=== PATIENT | female | born 1930 | race Caucasian/White ===

== ENCOUNTER 2016-09-14 11:20 | Outpatient (CLI) | payer MEDICARE, OTHER | END 2016-09-14 11:21 | disposition home or self-care (01) | DX: E87.6 Hypokalemia (principal) ==

== ENCOUNTER 2016-12-05 08:00 | Outpatient (CLI) | payer MEDICARE, OTHER | END 2016-12-05 08:01 | disposition home or self-care (01) | DX: E87.6 Hypokalemia (principal) ==

== ENCOUNTER 2016-12-28 15:09 | Outpatient (CLI) | payer MEDICARE, OTHER | END 2016-12-28 15:10 | disposition home or self-care (01) | DX: E87.6 Hypokalemia (principal); I10 Essential (primary) hypertension; E03.9 Hypothyroidism, unspecified; N28.9 Disorder of kidney and ureter, unspecified ==

== ENCOUNTER 2017-06-07 08:49 | Outpatient (CLI) | payer MEDICARE, OTHER ==
[2017-06-07 12:29] LABS: ALBUMIN/GLOBULIN RATIO 1.2 (1.0-2.2); BILIRUBIN,TOTAL 0.6 mg/dL (0.2-1.0); BUN - BLOOD UREA NITROGEN 27 mg/dL (6-20); CALCIUM 8.8 mg/dL (8.5-10.3); CARBON DIOXIDE - CO2 25 mmol/L (21-32); CHLORIDE 103 mmol/L (101-111); CHOL/HDL RATIO 3.2 (<4.4); CHOLESTEROL 205 mg/dL; CREATININE 1.1 mg/dL (0.4-1.0); GFR - MDRD 47 (>89); GLUCOSE 95 mg/dL (70-100); HDL CHOLESTEROL 64 mg/dL; LDL/HDL RATIO 1.8 (<4.4); POTASSIUM 3.8 mmol/L (3.5-5.0); SODIUM 143 mmol/L (135-145); TOTAL PROTEIN 7.3 g/dL (6.7-8.2); TRIGLYCERIDES 127 mg/dL; VLDL CHOLESTEROL 25 mg/dL
== END 2017-06-07 08:50 | disposition home or self-care (01) ==
LOC: LAB.F 08:49
PROVIDERS: ATTEND Internal Medicine
DX: E78.00 Pure hypercholesterolemia, unspecified (principal); N18.3 Chronic kidney disease, stage 3 (moderate)
CPT/HCPCS: 36415; 80053; 80061

== ENCOUNTER 2017-11-20 11:36 | Outpatient (CLI) | payer MEDICARE, OTHER ==
[2017-11-20 18:10] LABS: BUN - BLOOD UREA NITROGEN 26 mg/dL (6-20); CALCIUM 8.8 mg/dL (8.5-10.3); CARBON DIOXIDE - CO2 27 mmol/L (21-32); CHLORIDE 104 mmol/L (101-111); CHOL/HDL RATIO 3.7 (<4.4); CHOLESTEROL 198 mg/dL; CREATININE 1.1 mg/dL (0.4-1.0); GFR - MDRD 47 (>89); GLUCOSE 91 mg/dL (70-100); HDL CHOLESTEROL 54 mg/dL; LDL CHOLESTEROL,CALCULATED 107 mg/dL; SODIUM 141 mmol/L (135-145); VLDL CHOLESTEROL 37 mg/dL
== END 2017-11-20 11:37 | disposition home or self-care (01) ==
LOC: LAB.F 11:36
PROVIDERS: ATTEND Internal Medicine
DX: I10 Essential (primary) hypertension (principal); E78.00 Pure hypercholesterolemia, unspecified; E03.9 Hypothyroidism, unspecified
CPT/HCPCS: 36415; 80048; 80061; 83721; 84443

== ENCOUNTER 2018-05-29 10:26 | Outpatient (CLI) | payer MEDICARE, OTHER ==
--- NOTE | 2018-05-29 15:52 | XRAY Report ---
Reason: BRONCHITIS Procedure Date: 05/29/2018 Accession Number: [id number] / [id number] Procedure: XR - Chest 2 View X-Ray CPT Code: 59891 FULL RESULT: EXAM: CHEST RADIOGRAPHY EXAM DATE: 05/29/2018 10:36 AM. CLINICAL HISTORY: BRONCHITIS. COMPARISON: None FINDINGS: Lungs/Pleura: The lungs appear clear. No pneumothorax or pleural effusion. Mediastinum: There is cardiomegaly. Other: Cholecystectomy is noted. IMPRESSION: No evidence of acute cardiopulmonary disease.
== END 2018-05-29 10:27 | disposition home or self-care (01) ==
LOC: DI 10:26
PROVIDERS: ATTEND Registered Nurse
DX: J20.9 Acute bronchitis, unspecified (principal)
CPT/HCPCS: 71046

== ENCOUNTER 2019-02-27 07:31 | Outpatient (CLI) | payer MEDICARE, OTHER ==
[2019-02-27 10:33] LABS: HGB - HEMOGLOBIN 13.1 g/dL (12.0-16.0); MEAN CORPUSCULAR HEMOGLOBIN 31.7 pg (27.0-31.0); MEAN CORPUSCULAR HGB CONC 33.2 g/dL (32.0-36.0); MEAN CORPUSCULAR VOLUME 95.4 fL (81.0-99.0); MEAN PLATELET VOLUME 10.7 fL (7.9-10.8); RED BLOOD COUNT 4.13 10^6/uL (4.20-5.40); RED CELL DISTRIBUTION WIDTH 14.3 % (12.0-15.0); WHITE BLOOD COUNT 10.7 x10^3/uL (4.8-10.8)
[2019-02-27 10:56] LABS: ALBUMIN 3.9 g/dL (3.2-5.5); ALBUMIN/GLOBULIN RATIO 1.1 (1.0-2.2); ALKALINE PHOSPHATASE 61 IU/L (42-121); ALT ALANINE AMINOTRANSFERASE 15 IU/L (10-60); AST ASPARTATE AMINOTRANSFERASE 23 IU/L (10-42); BILIRUBIN,TOTAL 0.5 mg/dL (0.2-1.0); BUN - BLOOD UREA NITROGEN 27 mg/dL (6-20); CALCIUM 8.6 mg/dL (8.5-10.3); CARBON DIOXIDE - CO2 26 mmol/L (21-32); CHLORIDE 105 mmol/L (101-111); CHOL/HDL RATIO 3.5 (<4.4); CHOLESTEROL 205 mg/dL; GFR - MDRD 52 (>89); GLUCOSE 97 mg/dL (70-100); HDL CHOLESTEROL 59 mg/dL; LDL CHOLESTEROL,CALCULATED 120 mg/dL; SODIUM 144 mmol/L (135-145); TOTAL PROTEIN 7.3 g/dL (6.7-8.2); VLDL CHOLESTEROL 26 mg/dL
== END 2019-02-27 07:32 | disposition home or self-care (01) ==
LOC: LAB.S 07:31
PROVIDERS: ATTEND Internal Medicine
DX: E78.00 Pure hypercholesterolemia, unspecified (principal); E03.9 Hypothyroidism, unspecified
CPT/HCPCS: 36415; 80053; 80061; 83721; 84443; 85027

== ENCOUNTER 2019-05-26 03:24 | Outpatient (CLI) | payer MEDICARE, OTHER | END 2019-05-26 03:25 | disposition critical access hospital (66) | LOC: EMS 03:24 | PROVIDERS: ATTEND Surgery | DX: L50.9 Urticaria, unspecified (principal); M79.89 Other specified soft tissue disorders | CPT/HCPCS: A0425; A0429 ==

== ENCOUNTER 2019-05-26 03:54 | Emergency (ER) | payer MEDICARE, OTHER ==
--- NOTE | 2019-05-26 03:59 | ED Physician Documentation ---
PD HPI SKIN - Stated complaint Stated Complaint: SKIN RASH - History obtained from History obtained from: Patient - History of Present Illness Timing - onset: How many days ago (6) Timing - duration: Days ( 4) Timing - details: Abrupt onset, Still present Location: Bodywide Quality / character: Itchy, Discolored (red). No: Vesicular Improved by: Oral steroids (Seeing 2 days ago and started on a Medrol Dosepak but has not noticed much improvement. Was not given any antihistamines.) Associated symptoms: Myalgias. No: Fever, Headache, Facial swelling, Dyspnea, N/V/D Contributing factors: Exposed to medication (Had a flu shot 2 days prior to the onset of symptoms) Similar symptoms before: Has not had sx before Recently seen: Clinic (She had a flu shot 5 days ago on a Sunday at [facility]. She felt some slight myalgias the following day and then the second day after noted onset of a general itchy bumpy rash. She tried topical Benadryl without any improvement. Continued another couple of days and she went to her primary care or walk-in clinic and given Prednisone 20 mg PO. She has been on that for 2 doses so far without any improvement) Review of Systems Constitutional: reports: Myalgias, Fatigue. denies: Fever, Chills Nose: denies: Rhinorrhea / runny nose, Congestion Respiratory: denies: Dyspnea, Cough, Wheezing GI: denies: Nausea, Vomiting, Diarrhea Skin: reports: Rash Neurologic: reports: Generalized weakness. denies: Focal weakness, Numbness, Near syncope, Altered mental status, Headache PD PAST MEDICAL HISTORY - Past Medical History Cardiovascular: None Respiratory: None Neuro: None Endocrine/Autoimmune: None - Present Medications Home Medications: Ambulatory Orders Medication Instructions Recorded Confirmed Cetirizine [ZyrTEC] 10 mg PO DAILY #15 tablet 05/26/19 Hydrocodone/Acetaminophen [[place] 1 each PO Q6H PRN #15 tablet 05/26/19 5-325 Tablet] dexAMETHasone [Decadron] 4 mg PO DAILY #5 tablet 05/26/19 diphenhydrAMINE [Benadryl] 25 mg PO Q4-6H PRN #30 capsule 05/26/19 - Allergies Allergies/Adverse Reactions: Allergies Allergy/AdvReac Type Severity Reaction Status Date / Time ampicillin Allergy Hives Verified 05/26/19 06:28 Penicillins Allergy Hives Verified 05/26/19 06:28 PD ED PE NORMAL - Vitals Vital signs reviewed: Yes - General General: Alert and oriented X 3, Well developed/nourished, Other (She is having itchy diffuse rash without vesicles. This was after flu shot at [facility]. She denies other head cold symptoms. She has started feeling general achiness in the last day or 2.) - HEENT HEENT: Moist mucous membranes, Pharynx benign, Other (no oral swelling. ) - Neck Neck: Supple, no meningeal sign, No adenopathy - Cardiac Cardiac: RRR, No murmur - Respiratory Respiratory: Clear bilaterally - Abdomen Abdomen: Soft, Non tender - Derm Derm: Normal color, Warm and dry, Other (Diffuse bumpy to blotchy rash without vesicles. There are no obvious joint effusions. No oral swelling is seen. She is able to speak well.) - Extremities Extremities: No tenderness to palpate, Normal ROM s pain, No edema, No calf tenderness / cord, Other (The left shoulder where she got the vaccine does not show any redness or swelling or signs of abscess.) - Neuro Neuro: Alert and oriented X 3, No motor deficit, Normal speech Eye Opening: Spontaneous Motor: Obeys Commands Verbal: Oriented GCS Score: 15 Results - Vitals Vitals: Vital Signs - 24 hr 05/26/19 04:04 Temperature 36.8 C Heart Rate 86 Respiratory 12 Rate Blood Pressure 144/91 H O2 Saturation 94 Oxygen O2 Source Room air - Labs Labs: Laboratory Tests 05/26/19 05/26/19 05/26/19 04:22 04:22 04:22 WBC 16.7 H RBC 4.04 L Hgb 12.3 Hct 37.2 MCV 92.1 MCH 30.4 MCHC 33.1 RDW 14.6 Plt Count 236 MPV 9.4 Neut # (Auto) 14.2 H Lymph # (Auto) 0.9 L [place] # (Auto) 0.7 Eos # (Auto) 0.7 Baso # (Auto) 0.1 Absolute Nucleated RBC 0.00 Nucleated RBC % 0.0 ESR 21 Sodium 141 Potassium 3.6 Chloride 102 Carbon Dioxide 22 Anion Gap 17.0 H BUN 38 H Creatinine 1.2 H Estimated GFR (MDRD) 42 L Glucose 124 H Calcium 8.5 Total Bilirubin 0.7 AST 22 ALT 16 Alkaline Phosphatase 54 Total Creatine Kinase 60 Total Protein 6.5 L Albumin 3.7 Globulin 2.8 Albumin/Globulin Ratio 1.3 Lipase 46 PD MEDICAL DECISION MAKING - ED course Complexity details: considered differential (Seems like persistent drug allergy to a vaccine. She had started steroids but it is a Medrol pack so is tapering down already. I think she needs to stay at a higher dose and add antihistamines. She is given combination medicines here and is feeling moderately improved regarding itching. Her vaccine site does not show signs of infection. Her CK and sed rate are normal. White count still elevated but I think it is inflammatory.), d/w patient Departure - Departure Disposition: 01 Home, Self Care Clinical Impression: Allergic reaction to vaccine Condition: Stable Record reviewed to determine appropriate education?: Yes Instructions: ED Drug React Allergic Follow-Up: Dylon Blanchard MD [Primary Care Provider] - Prescriptions: Cetirizine [ZyrTEC] 10 mg PO DAILY #15 tablet dexAMETHasone [Decadron] 4 mg PO DAILY #5 tablet diphenhydrAMINE [Benadryl] 25 mg PO Q4-6H PRN #30 capsule PRN Reason: Allergy Symptoms Hydrocodone/Acetaminophen [[place] 5-325 Tablet] 1 each PO Q6H PRN #15 tablet PRN Reason: Pain Comments: Presume this is still a reaction to the vaccine you had. I think it may need a higher dose of steroids to begin with and we gave you some here and that I wrote a different prescription for 5 days more. Use the Decadron new prescription rather than finishing the current sterod dose pack previously. Add antihistamine cetirizine daily for the next 7 to 10 days and diphenhydramine (Benadryl) every 6 hours for the next several days as needed for itching. Anticipate your rash improving over the next day or 2. Return or follow up with PMD e, and sooner if worsening otherwise. Add pain meddication as needed for comfort.
[2019-05-26 04:05] VITALS: BP 144/91
[2019-05-26] MEDS ORDERED: CETIRIZINE 10 MG TABLET PO STA (04:13)
[2019-05-26] MEDS ORDERED: FAMOTIDINE 20 MG/2 ML VIAL IVP STA (04:13)
[2019-05-26] MEDS ORDERED: SODIUM CHLORIDE 0.9% 1,000 ML IV ONE (04:13)
[2019-05-26] MEDS ORDERED: DEXAMETHASONE 10 MG/ML VIAL IVP STA (04:13)
[2019-05-26] MEDS ORDERED: diphenhydrAMINE INJ 50 MG/ML VIAL IVP STA (04:13)
[2019-05-26 04:29] LABS: BASOPHILS # (AUTO) 0.1 10^3/uL (0.0-0.1); BASOPHILS % (AUTO) 0.4 %; EOSINOPHILS # (AUTO) 0.7 10^3/uL (0.0-0.7); EOSINOPHILS % (AUTO) 4.2 %; HGB - HEMOGLOBIN 12.3 g/dL (12.0-16.0); LYMPHOCYTES # (AUTO) 0.9 10^3/uL (1.5-3.5); LYMPHOCYTES % (AUTO) 5.6 %; MEAN CORPUSCULAR HEMOGLOBIN 30.4 pg (27.0-31.0); MEAN CORPUSCULAR HGB CONC 33.1 g/dL (32.0-36.0); MEAN CORPUSCULAR VOLUME 92.1 fL (81.0-99.0); MEAN PLATELET VOLUME 9.4 fL (7.9-10.8); MONOCYTES # (AUTO) 0.7 10^3/uL (0.0-1.0); MONOCYTES % (AUTO) 4.1 %; NEUTROPHILS # (AUTO) 14.2 10^3/uL (1.5-6.6); NEUTROPHILS % (AUTO) 85.1 %; PLT - PLATELET COUNT 236 10^3/uL (130-450); RED BLOOD COUNT 4.04 10^6/uL (4.20-5.40); RED CELL DISTRIBUTION WIDTH 14.6 % (12.0-15.0); WHITE BLOOD COUNT 16.7 x10^3/uL (4.8-10.8)
[2019-05-26 04:41] LABS: ALBUMIN 3.7 g/dL (3.2-5.5); ALBUMIN/GLOBULIN RATIO 1.3 (1.0-2.2); BILIRUBIN,TOTAL 0.7 mg/dL (0.2-1.0); CALCIUM 8.5 mg/dL (8.5-10.3); CREATININE 1.2 mg/dL (0.4-1.0); TOTAL PROTEIN 6.5 g/dL (6.7-8.2)
[2019-05-26] MEDS ORDERED: MORPHINE 10 MG/ML VIAL IVP STA (05:51)
== END 2019-05-26 07:18 | disposition home or self-care (01) ==
LOC: EDUNIT# → ED 03:54
DX: T80.62XA Other serum reaction due to vaccination, initial encounter (principal); L27.0 Generalized skin eruption due to drugs and medicaments taken internally; M79.10 Myalgia, unspecified site; T50.B95A Adverse effect of other viral vaccines, initial encounter; Y84.8 Other medical procedures as the cause of abnormal reaction of the patient, or of later complication, without mention of misadventure at the time of the procedure; Y92.512 Supermarket, store or market as the place of occurrence of the external cause
CPT/HCPCS: 36415; 80053; 82550; 83690; 85025; 85651; 96361; 96374; 96375; 99284; 99285; A9270; J1200